=== PATIENT | female | born 1985 ===

== ENCOUNTER 2025-03-18 12:15 | Outpatient (RCR) | payer SELFPAY ==
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
== END 2025-03-18 23:59 | disposition home or self-care (01) ==
LOC: HO.PHPA 12:15
PROVIDERS: Visit Provider Psychiatry & Neurology Psychiatry
DX: F33.9 Major depressive disorder, recurrent, unspecified (principal); F43.10 Post-traumatic stress disorder, unspecified; Z91.410 Personal history of adult physical and sexual abuse; Z79.899 Other long term (current) drug therapy
CPT/HCPCS: 90791; 90853

== ENCOUNTER → 2025-03-18 12:15 | Outpatient (BNV) | payer OTHER, SELFPAY | PROVIDERS: Visit Provider Psychiatry & Neurology Psychiatry | DX: F33.9 Major depressive disorder, recurrent, unspecified (principal); F43.10 Post-traumatic stress disorder, unspecified | CPT/HCPCS: 99203 ==